=== PATIENT | male | born 1950 | race Asian ===

== ENCOUNTER 2019-09-16 11:31 | Inpatient (IN) | payer OTHER ==
[~2019-09-16] VITALS: Ht 170.2 cm; Wt 66.0 kg
[2019-09-16 13:02] LABS: CREATININE SERUM 1.9 mg/dL (0.7-1.3); POTASSIUM SERUM 3.8 mmol/L (3.5-5.1)
[2019-09-16 13:08] LABS: BILIRUBIN TOTAL 1.2 mg/dL (0.20-1.00)
[2019-09-16 13:13] LABS: PLATELET COUNT 193 x10^3mcL (130-400); RED CELL DISTRIBUTION WIDTH 12.8 % (11.5-14.5)
[2019-09-16 13:17] LABS: ALBUMIN 2.7 g/dL (3.4-5.0); TOTAL PROTEIN, SERUM 8.4 g/dL (6.4-8.2)
[2019-09-16] MEDS ORDERED: FLOMAX0.4 MG (13:40)
[2019-09-16] MEDS ORDERED: ALD25 PO (13:41)
[2019-09-16] MEDS ORDERED: ALTOPREV40 M2 (13:41)
[2019-09-16] MEDS ORDERED: JANUVIA25 M1 PO (13:41)
[2019-09-16] MEDS ORDERED: PROINH (13:41)
[2019-09-16] MEDS ORDERED: LASIX20 MG (13:41)
[2019-09-16 14:19] LABS: BAND NEUTROPHIL 17 % (0-10); BASOPHIL 0 % (0-2); MONOCYTE 6 % (0-7); SEGMENTED NEUTROPHILS 77 % (37-75)
[2019-09-16 14:20] LABS: rbc morphology (normal/abnorm) ABNORMAL (NORMAL)
[2019-09-16 14:21] LABS: PLATELET MORPHOLOGY PLATELETS INCREASED
[2019-09-16 16:42] VITALS: BP 117/77
[2019-09-16 21:09] VITALS: BP 136/86
[2019-09-17] VITALS (7 sets, daily range): BP systolic 92–101; BP diastolic 59–66; Ht 170.2 cm; Wt 66.0 kg
[2019-09-17 05:08] LABS: PLATELET COUNT 159 x10^3mcL (130-400); RED CELL DISTRIBUTION WIDTH 14.3 % (11.5-14.5)
[2019-09-17 05:19] LABS: BASOPHIL % 0 % (0-2)
[2019-09-17 05:33] LABS: CARBON DIOXIDE 26.3 mmol/L (21-32); CREATININE SERUM 1.7 mg/dL (0.7-1.3); POTASSIUM SERUM 3.8 mmol/L (3.5-5.1); TOTAL PROTEIN, SERUM 6.7 g/dL (6.4-8.2)
[2019-09-17 05:34] LABS: ALBUMIN 1.9 g/dL (3.4-5.0); BILIRUBIN TOTAL 0.7 mg/dL (0.20-1.00); CALCIUM 8.1 mg/dL (8.5-10.1)
[2019-09-17 10:40] LABS: UA SPECIFIC GRAVITY 1.025 (1.005-1.035); microscopic required? YES; urine erythrocyte 2+ (NEGATIVE)
[2019-09-18 03:30] VITALS: BP 97/57
[2019-09-18 06:25] LABS: ALBUMIN 1.7 g/dL (3.4-5.0); BILIRUBIN TOTAL 0.5 mg/dL (0.20-1.00); CALCIUM 7.8 mg/dL (8.5-10.1); CARBON DIOXIDE 29.9 mmol/L (21-32); CREATININE SERUM 1.5 mg/dL (0.7-1.3); TOTAL PROTEIN, SERUM 6.3 g/dL (6.4-8.2)
[2019-09-18 08:00] VITALS: BP 106/70
[2019-09-18 12:00] VITALS: BP 103/66
[2019-09-18 20:45] VITALS: BP 95/60
[2019-09-19 04:49] VITALS: BP 106/60
[2019-09-19 06:30] LABS: PLATELET COUNT 191 x10^3mcL (130-400); RED CELL DISTRIBUTION WIDTH 14.4 % (11.5-14.5)
[2019-09-19 06:37] LABS: BASOPHIL % 0 % (0-2)
[2019-09-19 07:11] LABS: POTASSIUM SERUM 3.4 mmol/L (3.5-5.1)
[2019-09-19 07:12] LABS: ALBUMIN 1.8 g/dL (3.4-5.0); BILIRUBIN DIRECT 0.2 mg/dL (0.0-0.2); BILIRUBIN TOTAL 0.5 mg/dL (0.20-1.00); CALCIUM 7.3 mg/dL (8.5-10.1); CARBON DIOXIDE 27.8 mmol/L (21-32); CREATININE SERUM 1.5 mg/dL (0.7-1.3); TOTAL PROTEIN, SERUM 5.2 g/dL (6.4-8.2)
[2019-09-19 07:16] LABS: CARBON DIOXIDE 27.8 mmol/L (21-32); CHLORIDE SERUM 102 mmol/L (98-107); POTASSIUM SERUM 3.2 mmol/L (3.5-5.1); SODIUM SERUM 140 mmol/L (136-145)
[2019-09-19 07:17] LABS: ALBUMIN 1.8 g/dL (3.4-5.0); AST/SGOT 26 U/L (15-37); BILIRUBIN TOTAL 0.44 mg/dL (0.20-1.00); CALCIUM 7.7 mg/dL (8.5-10.1); CREATININE SERUM 1.5 mg/dL (0.7-1.3); GLUCOSE SERUM 154 mg/dL (74-106); TOTAL PROTEIN, SERUM 5.9 g/dL (6.4-8.2)
[2019-09-19 07:18] LABS: ALKALINE PHOSPHATASE 50 U/L (46-116); ALT/SGPT 37 U/L (16-63)
[2019-09-19 08:21] VITALS: BP 115/59
[2019-09-19 12:07] VITALS: BP 100/60
[2019-09-19 14:35] VITALS: BP 100/60
[2019-09-19 16:46] VITALS: BP 102/62; BP 140/68
[2019-09-19 20:40] VITALS: BP 134/71
[2019-09-20 05:50] VITALS: BP 116/71
[2019-09-20 08:20] LABS: ALBUMIN 1.9 g/dL (3.4-5.0); CARBON DIOXIDE 27.9 mmol/L (21-32); CREATININE SERUM 1.5 mg/dL (0.7-1.3); POTASSIUM SERUM 4.6 mmol/L (3.5-5.1); TOTAL PROTEIN, SERUM 6.1 g/dL (6.4-8.2)
[2019-09-20 08:21] LABS: BILIRUBIN TOTAL 0.63 mg/dL (0.20-1.00); CALCIUM 7.9 mg/dL (8.5-10.1)
[2019-09-20 08:35] VITALS: BP 128/74
[2019-09-20 12:11] VITALS: BP 118/86
[2019-09-20 17:09] VITALS: BP 125/73
[2019-09-20 20:44] VITALS: BP 132/52
[2019-09-21 05:56] VITALS: BP 124/70
[2019-09-21 07:04] LABS: PLATELET COUNT 279 x10^3mcL (130-400)
[2019-09-21 07:08] LABS: RED CELL DISTRIBUTION WIDTH 14.7 % (11.5-14.5)
[2019-09-21 08:05] LABS: CARBON DIOXIDE 28.2 mmol/L (21-32); POTASSIUM SERUM 4.9 mmol/L (3.5-5.1)
[2019-09-21 08:06] LABS: BILIRUBIN TOTAL 0.56 mg/dL (0.20-1.00); CALCIUM 8.5 mg/dL (8.5-10.1); CREATININE SERUM 1.3 mg/dL (0.7-1.3); TOTAL PROTEIN, SERUM 6.2 g/dL (6.4-8.2)
[2019-09-21 08:07] LABS: CALCIUM 7.8 mg/dL (8.5-10.1); CARBON DIOXIDE 27.5 mmol/L (21-32); CREATININE SERUM 1.3 mg/dL (0.7-1.3); POTASSIUM SERUM 5.1 mmol/L (3.5-5.1)
[2019-09-21 08:24] LABS: MONOCYTE 6 % (0-7); SEGMENTED NEUTROPHILS 89 % (37-75)
[2019-09-21 09:08] VITALS: BP 110/60
[2019-09-21 09:46] LABS: rbc morphology (normal/abnorm) NORMAL (NORMAL)
[2019-09-21 11:30] VITALS: BP 167/110
[2019-09-21 13:00] VITALS: BP 89/58
[2019-09-21 17:31] VITALS: BP 127/82
[2019-09-21 20:54] VITALS: BP 115/69
[2019-09-22 06:02] VITALS: BP 115/66
[2019-09-22 06:53] LABS: POTASSIUM SERUM 3.7 mmol/L (3.5-5.1)
[2019-09-22 06:54] LABS: CALCIUM 7.6 mg/dL (8.5-10.1); CARBON DIOXIDE 26.3 mmol/L (21-32); CREATININE SERUM 1.3 mg/dL (0.7-1.3)
[2019-09-22 07:35] VITALS: BP 122/80
[2019-09-22 08:49] LABS: RED CELL DISTRIBUTION WIDTH 14.5 % (11.5-14.5)
[2019-09-22 08:50] LABS: PLATELET COUNT 264 x10^3mcL (130-400)
[2019-09-22 11:16] LABS: BAND NEUTROPHIL 1 % (0-10); BASOPHIL 0 % (0-2); MONOCYTE 5 % (0-7); SEGMENTED NEUTROPHILS 93 % (37-75)
[2019-09-22 11:17] LABS: PLATELET MORPHOLOGY PLATELETS INCREASED; rbc morphology (normal/abnorm) ABNORMAL (NORMAL)
[2019-09-22 11:55] VITALS: BP 122/66
[2019-09-22 15:33] VITALS: BP 119/65
[2019-09-22 20:15] VITALS: BP 113/70
[2019-09-23 04:50] VITALS: BP 98/68
[2019-09-23 06:47] LABS: PLATELET COUNT 310 x10^3mcL (130-400); RED CELL DISTRIBUTION WIDTH 14.4 % (11.5-14.5)
[2019-09-23 06:53] LABS: CALCIUM 7.8 mg/dL (8.5-10.1); CARBON DIOXIDE 27.3 mmol/L (21-32); CREATININE SERUM 1.5 mg/dL (0.7-1.3); POTASSIUM SERUM 5.2 mmol/L (3.5-5.1)
[2019-09-23 08:01] VITALS: BP 97/49
[2019-09-23 11:08] LABS: SEGMENTED NEUTROPHILS 97 % (37-75)
[2019-09-23 11:09] LABS: ATYPICAL LYMPH 0 %; BAND NEUTROPHIL 0 % (0-10); MONOCYTE 9 % (0-7); rbc morphology (normal/abnorm) ABNORMAL (NORMAL)
[2019-09-23 11:10] LABS: PLATELET MORPHOLOGY PLATELETS INCREASED
[2019-09-23 11:46] VITALS: BP 119/68
[2019-09-23 13:32] VITALS: BP 119/68
[2019-09-23 17:16] VITALS: BP 99/65
== END 2019-09-23 18:53 | disposition home or self-care (01) | DRG 867 ==
LOC: ED 11:31 → IC 13:15 → DU 13:15 → IC 20:45 → DU 09-18 15:46
PROVIDERS: Emergency Medicine; Internal Medicine Pulmonary Disease; ADMIT Internal Medicine
DX: A28.0 Pasteurellosis (principal); J18.9 Pneumonia, unspecified organism; J96.01 Acute respiratory failure with hypoxia; C78.02 Secondary malignant neoplasm of left lung; C78.01 Secondary malignant neoplasm of right lung; N17.9 Acute kidney failure, unspecified; J44.9 Chronic obstructive pulmonary disease, unspecified; E11.65 Type 2 diabetes mellitus with hyperglycemia; I10 Essential (primary) hypertension; C08.9 Malignant neoplasm of major salivary gland, unspecified; F17.210 Nicotine dependence, cigarettes, uncomplicated; Z68.22 Body mass index [BMI] 22.0-22.9, adult; Z79.84 Long term (current) use of oral hypoglycemic drugs
CPT/HCPCS: 36600; 82962; 83880; 87804; 94150; A4628; C1751; G0378; J0295; J0456; J0696; J1644; J1815; J1956; J2543; J2920; J2930; J3480; J3490; J7040; J7050; J7512; J7613; J7620; Q0092